=== PATIENT | male | born 1995 | race Caucasian/White ===

== ENCOUNTER 2021-02-16 19:06 | Emergency (ER) | payer MEDICAID ==
[~2021-02-16] VITALS: Ht 182.9 cm; Wt 100.0 kg
[2021-02-16 19:15] VITALS: BP 131/93
[2021-02-16] MEDS ORDERED: BACITRACIN ZINC OINT UDPKT TOP ONE (19:45)
[2021-02-16] MEDS ORDERED: TETANUS, DIPHTHERIA, PERTUSSIS VAC/PF 0.5ML (>7YR OLD) IM ONE (19:45)
[2021-02-16] MEDS ORDERED: ACETAMINOPHEN 325MG TABLET PO ONE (19:45)
[2021-02-16] MEDS ORDERED: LIDOCAINE HCL/PF 1% 10 MG/ML 5ML VIAL IJ ONE (19:45)
[2021-02-16] MEDS ORDERED: TETRACAINE 0.5% OPHTH DROPS 4ML LEFTEYE NR (20:00)
[2021-02-16] MEDS ORDERED: FLUORESCEIN SODIUM 1MG/STRIP LEFTEYE NR (20:00)
[2021-02-16] MEDS ORDERED: AMOX-424 MT (21:34)
[2021-02-16] MEDS ORDERED: IBUP-2029 MT (21:34)
[2021-02-16] MEDS ORDERED: AMOXICILLIN/POTASSIUM CLAVULANATE 875/125MG TAB PO ONE (21:45)
== END 2021-02-16 22:25 | disposition home or self-care (01) ==
LOC: ER 19:06
DX: S01.21XA Laceration without foreign body of nose, initial encounter (principal); Y00.XXXA Assault by blunt object, initial encounter; Y93.89 Activity, other specified; Y92.89 Other specified places as the place of occurrence of the external cause; Y99.8 Other external cause status
CPT/HCPCS: 12011; 70486; 90471; 90715; 99284; J3490; Z7610; 96360

== ENCOUNTER 2021-02-23 14:28 | Emergency (ER) | payer MEDICAID ==
[~2021-02-23] VITALS: Ht 167.6 cm; Wt 78.0 kg
[~2021-02-23 14:28] MED LIST: AMOX-424 MT; IBUP-2029 MT
[2021-02-23 15:07] VITALS: BP 137/86
== END 2021-02-23 15:12 | disposition home or self-care (01) ==
LOC: ER 14:28
DX: Z48.02 Encounter for removal of sutures (principal)
CPT/HCPCS: 99281

== ENCOUNTER 2021-04-07 16:03 | Emergency (ER) | payer MEDICAID ==
[~2021-04-07] VITALS: Ht 175.3 cm; Wt 104.0 kg
[2021-04-07] MEDS ORDERED: IBUP-2029 MT (17:19)
[2021-04-07] MEDS ORDERED: DEXTL MT (17:19)
[2021-04-07 17:45] VITALS: BP 115/87
== END 2021-04-07 17:48 | disposition home or self-care (01) ==
LOC: ER 16:03
DX: R05 Cough (principal); M79.18 Myalgia, other site; Z90.49 Acquired absence of other specified parts of digestive tract; Z20.822 Contact with and (suspected) exposure to COVID-19; Z79.899 Other long term (current) drug therapy
CPT/HCPCS: 71045; 99283